=== PATIENT | male | born 1975 | race Caucasian/White ===

== ENCOUNTER → 2017-07-09 10:34 | Outpatient (CLI) | payer OTHER, SELFPAY ==
[2017-07-09 10:37] LABS: Microscopic, Urine URINE MICROSCOPIC (MICROSCOPIC)
[2017-07-09 11:08] LABS: Basophils % 0.3 % (0.1-2.0); Eosinophils # 0.2 K/mm3 (0.0-0.4); Eosinophils % 2.3 % (0.1-12.0); Hematocrit 46.4 % (42.0-52.0); Hemoglobin 15.1 g/dL (14.1-18.0); Lymphocytes # 2.8 K/mm3 (0.7-4.5); Lymphocytes % 33.4 K/mm3 (10-50); Mean Corpuscular HGB Conc 32.6 g/dL (31.8-35.4); Mean Corpuscular Hemoglobin 30.8 pg (27.0-31.2); Mean Corpuscular Volume 94.5 fl (80-94); Mean Platelet Volume 7.5 fl (7.4-10.4); Monocytes # 0.7 K/mm3 (0.1-1.0); Monocytes % 8.6 % (1.7-9.3); Neutrophils # 4.7 K/mm3 (1.8-7.8); Neutrophils % 55.4 % (37.0-80.0); Platelet Count 215 K/mm3 (142-424); Red Blood Count 4.91 M/mm3 (4.60-6.20); Red Cell Distribution Width 12.3 % (11.5-17.5); White Blood Count 8.5 K/mm3 (4.8-10.8)
[2017-07-09 11:11] LABS: Appearance,Urine CLEAR (Clear); Bilirubin,Urine Negative (Negative); Blood, Urine Negative (Negative); Color,Urine YELLOW (Yellow); Glucose,Urine (UA) Negative (Negative); Ketones,Urine Negative (Negative); Leukocyte Esterase,Urine Negative (Negative); Nitrate,Urine Negative (Negative); PH,Urine 5.5 (5.0-8.5); Protein,Urine Negative (Negative); Specific Gravity, Urine >= 1.030 (1.005-1.030); Urobilinogen,Urine 0.2 EU/dl (0.2)
[2017-07-09 11:27] LABS: Bacteria,Urine Trace /lpf; Mucus,Urine 3+ /lpf; WBC,Urine Occasional #/hpf (0-3)
[2017-07-09 12:08] LABS: Anion Gap 12.3 mEq/L (5-15); Blood Urea Nitrogen 13 mg/dL (7-18); Carbon Dioxide 28 mmol/L (21.0-32.0); Chloride 106 mmol/L (98-107); Creatinine,Serum 0.81 mg/dL (0.70-1.30); Estimated Glomerular Filt Rate 105 ml/min (>60); GFR (African American) 126 ML/MIN (>60); Glucose 97 mg/dL (74-106); Potassium 4.3 mmoL/L (3.5-5.1); Sodium 142 mmol/L (136-145)
== END ==
PROVIDERS: Visit Provider Surgery
DX: Z01.818 Encounter for other preprocedural examination (principal); K40.90 Unilateral inguinal hernia, without obstruction or gangrene, not specified as recurrent
CPT/HCPCS: 36415; 80048; 81001; 85025; 93005

== ENCOUNTER → 2021-03-28 16:36 | Outpatient (CLI) | payer BC, SELFPAY | PROVIDERS: Visit Provider Nurse Practitioner | DX: Z20.822 Contact with and (suspected) exposure to COVID-19 (principal) | CPT/HCPCS: C9803; U0003; U0005 ==

== ENCOUNTER 2021-08-06 18:14 | Inpatient (IN) | payer BC, SELFPAY ==
[2021-08-06] VITALS (11 sets, daily range): BP systolic 116–134; BP diastolic 69–85; PULSE 81–96; RESP 12–22; TEMP 36.2–37.3; O2SAT 88–99; BMI 19.2; BMI 19.1
--- NOTE | 2021-08-06 18:26 | CT_ITS ---
PROCEDURE INFORMATION: Exam: CT Abdomen And Pelvis Without Contrast Exam date and time: 08/06/2021 6:30 PM Age: 46 years old Clinical indication: Abdominal pain; Flank; Right lower quadrant (rlq); Prior surgery; Surgery date: 6+ months; Surgery type: Right inguinal hernia 2019; Additional info: RT flank/pain. HX kidney stones. TECHNIQUE: Imaging protocol: Computed tomography of the abdomen and pelvis without contrast. Radiation optimization: All CT scans at this facility use at least one of these dose optimization techniques: automated exposure control; mA and/or kV adjustment per patient size (includes targeted exams where dose is matched to clinical indication); or iterative reconstruction. COMPARISON: No relevant prior studies available. FINDINGS: Liver: Hepatic steatosis. Gallbladder and bile ducts: Normal. No calcified stones. No ductal dilation. Pancreas: Normal. No ductal dilation. Spleen: Normal. No splenomegaly. Adrenal glands: Normal. No mass. Kidneys and ureters: Bilateral perinephric stranding. Findings nonspecific and may reflect acute versus chronic inflammatory change. Bilateral punctate nonobstructing renal calculi. Stomach and bowel: Mesenteric stranding with edematous change in association with the cecum, ileocecal valve as well as extending into the ascending colon. No normal appearing appendix is demonstrated. A thickened and inflamed appendix measuring 8 mm is partially visualized along the inferolateral margin of the cecum. Appendix: See Stomach and bowel finding. Intraperitoneal space: See Stomach and bowel finding. Vasculature: Unremarkable. No abdominal aortic aneurysm. Lymph nodes: Unremarkable. No enlarged lymph nodes. Urinary bladder: Unremarkable as visualized. Reproductive: Unremarkable as visualized. Bones/joints: Unremarkable. No acute fracture. Soft tissues: Unremarkable. IMPRESSION: 1. Findings compatible with acute appendicitis. 2. Hepatic steatosis. 3. Bilateral punctate nonobstructing renal calculi. 4. Preliminary results communicated to Dr. Byrne prior to completion of the dictation at approximately 6:18 p.m.
--- NOTE | 2021-08-06 18:26 | HMH.EDABDPAI ---
ED Disposition Clinical Impression: Appendicitis Qualifiers: Appendicitis type: acute appendicitis Acute appendicitis type: with localized peritonitis Appendicitis gangrene presence: without gangrene Appendicitis perforation presence: without perforation Appendicitis abscess presence: without abscess Qualified Code(s): K35.30 - Acute appendicitis with localized peritonitis, without perforation or gangrene Disposition: Still a Patient Condition on Discharge: Good - Critical Care Critical Care Time: No Attestation: On 08/06/21, the high probability of a clinically significant, sudden or life threatening deterioration of the following system(s) required my full and direct attention, intervention and personal management. The time I documented below is in addition to time spent performing reported procedures but includes the following listed in this critical care notation. Medical Decision Making - Medical Records Medical records reviewed: Yes: I reviewed the patient's medical records. - [place] Inquiry Pt receiving controlled substance: No Vital Signs: 08/06/21 18:25 08/06/21 20:10 Temperature 98.2 F 98.2 F Temperature Source Oral Oral Pulse Rate 81 Pulse Rate [Radial] 90 Respiratory Rate 16 17 Blood Pressure 116/76 Blood Pressure [Right Arm] 134/85 Blood Pressure Mean [Right Arm] 101 Blood Pressure Position [Right Arm] Sitting 02 Sat by Pulse Oximetry 98 Oxygen Delivery Method Room Air Room Air - Lab Data Lab Results 08/06/21 18:25: Urine Color Yellow, Urine Appearance Clear, Urine pH 6.5, Ur Specific [place] 1.020, Urine Protein Negative, Urine Glucose (UA) Negative, Urine Ketones Negative, Urine Blood Negative, Urine Nitrate Negative, Urine Bilirubin Negative, Urine Urobilinogen 2.0, Ur Leukocyte Esterase Negative, Urine RBC None, Urine WBC Occasional, Ur Squamous Epith Cells 3-5, Urine Bacteria Trace 08/06/21 18:40: WBC 10.6, RBC 4.43 L, Hgb 13.7 L, Hct 41.2 L, MCV 93.0, MCH 31.0, MCHC 33.3, RDW 13.5, Plt Count 257, MPV 8.0, Neut % (Auto) 66.4, Lymph % (Auto) 20.3, [place] % (Auto) 10.3 H, Eos % (Auto) 1.9, Baso % (Auto) 1.2, Neut # (Auto) 7.0, Lymph # (Auto) 2.2, [place] # (Auto) 1.1 H, Eos # (Auto) 0.2, Baso # (Auto) 0.1 08/06/21 18:40: Sodium 137, Potassium 3.7, Chloride 104, Carbon Dioxide 27, Anion Gap 9.7, BUN 12, Creatinine 0.80, Estimated Creat Clear 99, Estimated GFR 104, Est GFR ( Amer) 126, Glucose 123 H, Calcium 9.1, Total Bilirubin 0.4, AST 35, ALT 45, Alkaline Phosphatase 64, Total Protein 7.0, Albumin 3.7, Globulin 3.3 H, Albumin/Globulin Ratio 1.1 08/06/21 18:40: Lipase 34 08/06/21 19:24: SARS-CoV-2 (PCR) Not detected, Influenza A Untype (PCR) Not detected, Influenza Type B (PCR) Not detected Result diagrams: 08/09/21 06:02 08/06/21 18:40 Orders (Tests/Meds): ED MEDICATIONS Discontinued Medications Generic Name Dose Route Start Last Admin Trade Name Freq PRN Reason Stop Dose Admin Hydrocodone Bitart/Acetaminophen 1 - 2 tab 08/06/21 22:17 Hydrocodone/Apap 5/325 Mg Tablet PO 09/05/21 22:16 Q6 PRN post-op pain Hydrocodone Bitart/Acetaminophen 1 - 2 tab 08/07/21 08:20 Hydrocodone/Apap 5/325 Mg Tablet PO 09/05/21 22:16 Q6HP PRN Moderate to Severe Pain Docusate Sodium 250 mg 08/07/21 09:37 08/09/21 07:59 Docusate Sodium 250mg Capsule PO 09/06/21 09:36 250 mg BID ALLEY Administration Hydromorphone HCl 0.5 mg 08/06/21 21:20 Hydromorphone 2mg/Ml Syringe IV 08/06/21 23:20 Q5MINP PRN Moderate to Severe Pain Hydromorphone HCl 0.5 mg 08/06/21 22:07 Hydromorphone 2mg/Ml Syringe IV 08/06/21 23:20 Q5MINP PRN Moderate to Severe Pain Piperacillin Sod/Tazobactam 50 mls @ 100 mls/hr 08/06/21 19:23 08/06/21 19:49 Sod 3.375 gm/ Sodium Chloride IV 08/06/21 19:52 100 mls/hr ONCE ONE Administration Sodium Chloride 1,000 mls @ 100 mls/hr 08/06/21 19:30 08/09/21 13:18 Sod Chlor 0.9% 1000ml Bag IV 09/05/21 19
[2021-08-06 18:29] LABS: Microscopic, Urine URINE MICROSCOPIC (MICROSCOPIC)
[2021-08-06 18:32] LABS: Appearance,Urine CLEAR (Clear); Bilirubin,Urine Negative (Negative); Blood, Urine Negative (Negative); Color,Urine YELLOW (Yellow); Glucose,Urine (UA) Negative (Negative); Ketones,Urine Negative (Negative); Leukocyte Esterase,Urine Negative (Negative); Nitrate,Urine Negative (Negative); PH,Urine 6.5 (5.0-8.5); Protein,Urine Negative (Negative)
--- NOTE | 2021-08-06 18:32 | INFXCTL.NOTE ---
patient over to CT scan at this time.
--- NOTE | 2021-08-06 18:38 | PC.NURSE ---
patient back from CT scan
[2021-08-06 18:42] LABS: Bacteria,Urine Trace /lpf; WBC,Urine Occasional #/hpf (0-3)
[2021-08-06 18:56] LABS: Basophils # 0.1 K/mm3 (0-0.2); Basophils % 1.2 % (0.1-2.0); Eosinophils # 0.2 K/mm3 (0.0-0.4); Eosinophils % 1.9 % (0.1-12.0); Hematocrit 41.2 % (42.0-52.0); Hemoglobin 13.7 g/dL (14.1-18.0); Lymphocytes # 2.2 K/mm3 (0.7-4.5); Lymphocytes % 20.3 % (10-50); Mean Corpuscular HGB Conc 33.3 g/dL (31.8-35.4); Monocytes # 1.1 K/mm3 (0.1-1.0); Monocytes % 10.3 % (1.7-9.3); Neutrophils % 66.4 % (37.0-80.0); Platelet Count 257 K/mm3 (142-424); Red Blood Count 4.43 M/mm3 (4.60-6.20); Red Cell Distribution Width 13.5 % (11.5-17.5); White Blood Count 10.6 K/mm3 (4.8-10.8)
[2021-08-06 18:57] LABS: Chloride 104 mmol/L (98-107); Potassium 3.7 mmoL/L (3.5-5.1); Sodium 137 mmol/L (136-145)
[2021-08-06 18:59] LABS: Lipase 34 U/L (23-300)
[2021-08-06 19:00] LABS: Alanine Aminotransferase 45 U/L (12-78); Albumin Level 3.7 g/dl (3.5-5.0); Albumin/Globulin Ratio 1.1 (1.1-1.8); Alkaline Phosphatase 64 U/L (38-126); Anion Gap 9.7 mEq/L (5-15); Aspartate Amino Transferase 35 U/L (17-59); Bilirubin,Total 0.4 mg/dl (0.2-1.3); Blood Urea Nitrogen 12 mg/dl (9-20); Calcium 9.1 mg/dl (8.4-10.2); Carbon Dioxide 27 mmol/L (22.0-30.0); Creatinine Clearance Estimated 99 mL/min (50-200); Estimated Glomerular Filt Rate 104 ml/min (>60); GFR (African American) 126 ML/MIN (>60); Globulin 3.3 g/dL (1.3-3.2); Glucose 123 mg/dl (74-100)
--- NOTE | 2021-08-06 19:18 | PC.NURSE ---
Dr. Byrne s/w AD
--- NOTE | 2021-08-06 19:22 | PC.NURSE ---
Dr. Byrne s/w Dr. Aguilar
--- NOTE | 2021-08-06 19:22 | PC.NURSE ---
Dr. Aguilar asked Dr. Byrne to call surgery team in. working supervisor notified
[2021-08-06 19:29] LABS: Coronavirus 19, PCR Not Detected (NotDetected); Influenza A, PCR Not Detected (NotDetected); Influenza B, PCR Not Detected (NotDetected)
--- NOTE | 2021-08-06 19:50 | PC.NURSE ---
Dr. Aguilar s/w pt at bedside, surgery consent reviewed
--- NOTE | 2021-08-06 20:08 | PC.NURSE ---
Anesthesia at bedside. Alka Pennington RN at bedside, prepared pt to take to surgery
--- NOTE | 2021-08-06 21:19 | HMH.ANESCL ---
[facility] Anesthesia Checklist - Structural Data Admitted From: Emergency Dept Planned Operative Procedure/s: appy Consent for Planned Operative Procedure(s) Verified: Yes - Additional verifications Anesthesia Reactions: No Hx Blood Transfusions: No Blood Transfusion Reaction: No - Airway Assessment C-Spine Mobility Assessed: Yes TMJ Mobility Assessed: Yes Dentition: Good Dentition - Neurological Assessment Level of Consciousness: Awake, Alert, Appropriate - Anesthesia Plan Anesthesia Risk discussed: Yes Anesthesia Plan: Verified ASA Class: II Anesthesia Type: General [facility] History I have reviewed the patient's past medical history: Yes Medical History: Denies:: Cancer, Diabetes Mellitus Type 1, Diabetes Mellitus Type 2, MRSA, Seizures *Have you ever received a pneumonia vaccine?: Yes *Have you received a flu vaccine this season?: Yes Other Medical History: Denies: Blood Transfusion Reaction Anesthesia experience/problems:: none Other Surgeries: Yes: No Previous Surgery, Hernia Repair Amputation: No Fractures: No - *Social History Smoking Status: Never smoker Alcohol Intake: never Alcohol Intake Frequency:: other Substance Use Type: denies use *Occupational Status:: employed Housing: house *Travel in the last 8 weeks: Inside the [facility] Family Hx:: Hypertension
--- NOTE | 2021-08-06 22:03 | HMH.GSHP ---
HPI HPI: This is a 46-year-old gentleman who presented to the emergency department with a 5-day history of right lower quadrant pain and intermittent nausea/vomiting. He presented to the emergency department secondary to increased symptomatology. No fevers. Evaluation included a CT scan that revealed changes consistent with appendicitis. [facility] History Medical History: Denies:: Cancer, Diabetes Mellitus Type 1, Diabetes Mellitus Type 2, MRSA, Seizures *Have you ever received a pneumonia vaccine?: Yes *Have you received a flu vaccine this season?: Yes Other Medical History: Denies: Blood Transfusion Reaction Anesthesia experience/problems:: none Other Surgeries: Yes: No Previous Surgery, Hernia Repair Amputation: No Fractures: No - *Social History Smoking Status: Never smoker Alcohol Intake: never Alcohol Intake Frequency:: other Substance Use Type: denies use *Occupational Status:: employed Housing: house *Travel in the last 8 weeks: Inside the [facility] Family Hx:: Hypertension Review of Systems - Constitutional Denies chills - Eyes Denies change in vision - ENT Denies difficulty swallowing - *Cardiovascular Denies chest pain - *Respiratory Denies cough - *Gastrointestinal Reports abdominal pain, Reports nausea, Reports vomiting - *Genitourinary Denies difficulty urinating - *Musculoskeletal Denies abnormal walking - Integumentary/Breasts Denies new lesions - *Neurologic Denies abnormal speech - Psychiatric Denies anxiety - Endocrine Denies cold intolerance - Hematologic/Lymphatic Denies easy bleeding - Allergic/Immunologic Denies GI upset with certain foods Meds Home Medications Medication Instructions Recorded Confirmed Type levocetirizine 5 mg tablet 5 mg PO DAILY 08/05/19 08/06/21 History Losartan Potassium [Cozaar 50mg 50 mg PO DAILY 08/06/21 08/06/21 History Tablets] Allergies Allergy/AdvReac Type Severity Reaction Status Date / Time hornet venom Allergy Verified 08/06/21 20:35 lisinopril AdvReac Mild Cough Verified 08/06/21 20:35 Exam Vital signs and Labs for Last 24 Hours: Temp Pulse Resp BP Pulse Ox 98.2 F 81 17 116/76 98 08/06/21 20:10 08/06/21 20:10 08/06/21 20:10 08/06/21 20:10 08/06/21 18:25 Laboratory Results - last 24 hr 08/06/21 18:25: Urine Color Yellow, Urine Appearance Clear, Urine pH 6.5, Ur Specific [place] 1.020, Urine Protein Negative, Urine Glucose (UA) Negative, Urine Ketones Negative, Urine Blood Negative, Urine Nitrate Negative, Urine Bilirubin Negative, Urine Urobilinogen 2.0, Ur Leukocyte Esterase Negative, Urine RBC None, Urine WBC Occasional, Ur Squamous Epith Cells 3-5, Urine Bacteria Trace 08/06/21 18:40: WBC 10.6, RBC 4.43 L, Hgb 13.7 L, Hct 41.2 L, MCV 93.0, MCH 31.0, MCHC 33.3, RDW 13.5, Plt Count 257, MPV 8.0, Neut % (Auto) 66.4, Lymph % (Auto) 20.3, [place] % (Auto) 10.3 H, Eos % (Auto) 1.9, Baso % (Auto) 1.2, Neut # (Auto) 7.0, Lymph # (Auto) 2.2, [place] # (Auto) 1.1 H, Eos # (Auto) 0.2, Baso # (Auto) 0.1 08/06/21 18:40: Sodium 137, Potassium 3.7, Chloride 104, Carbon Dioxide 27, Anion Gap 9.7, BUN 12, Creatinine 0.80, Estimated Creat Clear 99, Estimated GFR 104, Est GFR ( Amer) 126, Glucose 123 H, Calcium 9.1, Total Bilirubin 0.4, AST 35, ALT 45, Alkaline Phosphatase 64, Total Protein 7.0, Albumin 3.7, Globulin 3.3 H, Albumin/Globulin Ratio 1.1 08/06/21 18:40: Lipase 34 08/06/21 19:24: SARS-CoV-2 (PCR) Not detected, Influenza A Untype (PCR) Not detected, Influenza Type B (PCR) Not detected I & O for Last 24 hours: Intake & Output 08/04/21 08/05/21 08/06/21 08/07/21 11:59 11:59 11:59 11:59 Intake Total 50 / 50 Balance 50 / 50 Weight 134 lb - Constitutional no acute distress - *Routine HEENT Exam Head: Present: normocephalic Eye: Present: EOMI ENT: Present: mucous membranes moist - *Routine Neck Exam Present: full ROM - Routine Chest/Breast/Axilla Exam Chest wall:
--- NOTE | 2021-08-06 22:06 | P.OP_ITS ---
Date of procedure: 08/06/21 Pre-op Diagnosis:: Appendicitis Post-op Diagnosis:: Perforated necrotic appendicitis Procedure performed:: Laparoscopic appendectomy Surgeon:: Pardeep Aguilar MD G[employer]ANCE [employer] APPEALS COORDINATOR:: Forrest Neal Anesthesia: GETA Estimated blood loss (mL): 25 Operative findings:: Global appendiceal necrosis Perforation with focal abscess Small margin of seemingly viable tissue at appendiceal stump Control of appendiceal stump with Endoloop after staple margin appeared inadequate Operative note:: After informed consent was obtained the patient was taken to the operating room and placed in the supine position. General anesthesia was induced and his abdomen was prepped and draped in a sterile fashion. After infiltration local anesthetic an infraumbilical incision was made. A Veress needle was placed in position. The abdomen was insufflated. A 12 mm optical trocar was placed in position. Under direct visualization a 5 mm trocar was placed in the suprapubic position and an additional 5 mm trocar was placed in the left lower quadrant. Inspection revealed a phlegmonous inflammatory mass adhered to the right lower quadrant anterior abdominal wall. Careful dissection revealed immediate perforation of a necrotic appendix with adherent omentum, small bowel, and cecum. Dissection was exceptionally difficult as the appendix was not only necrotic with obvious perforation but also incorporated into the above-stated phlegmonous mass. A combination of blunt dissection and careful dissection with harmonic dior were utilized to transect the mesoappendix to the degree possible. The mid/distal appendix with obvious necrosis manually from the remainder of the appendix and was placed in a retrieval bag. This portion of the appendix was removed through the infraumbilical trocar site. The right lower quadrant was thoroughly irrigated. The remaining appendiceal stump that was equally necrotic was carefully elevated. The base did appear viable. An Endopath 45 stapling device was utilized to take the appendix at the base; however, the degree of tissue necrosis created an inadequate staple margin. The cecal margin/appendiceal stump was carefully elevated and controlled with a single Endoloop. An additional Endoloop was not placed secondary to concern for displacement of the original. The Endoloop appeared to be in good position on relatively healthy tissue. No obvious leakage noted. No obvious injury to the colon, small bowel, or ureter was noted. Visualization of structures was significantly limited secondary to gross necrosis concomitant severe inflammatory/phlegmonous changes. A #10 flat Bhavik-Saha drain was then placed along the operative bed and exited through the supra pubic trocar site. The drain was secured with interrupted nylon suture. A combination of needle close device and 0 Ethibond was utilized to close the fascia at the infraumbilical trocar site. The remaining trocar was removed as pneumoperitoneum was released. All wounds were irrigated and skin was closed with 4-0 Monocryl in a mattress fashion to facilitate hemostasis. Dressings were applied and the patient was transferred to recovery in stable condition. Condition: stable Disposition: PACU Specimens:: Appendix Complications:: No immediate
--- NOTE | 2021-08-06 22:20 | P.PN_ITS ---
[facility] Anesthesia Record Part I Intake, IV Amount: 2,500 Estimated blood loss (mL): 25 Urine output (mL): 350 Blood Pressure: 122/76 SaO2: 96 Pulse Rate: 88 Respiratory Rate: 12 Temperature: 97.2 F Patient is:: Awake, Stable Stable to PACU at:: 22:15
--- NOTE | 2021-08-06 22:45 | PC.NURSE ---
PT ARRIVED TO FLOOR VIA BED FROM OR W/STAFF @ [id number]
[2021-08-07] VITALS (13 sets, daily range): BP systolic 97–152; BP diastolic 59–96; PULSE 62–109; RESP 16–20; TEMP 36.5–37.3; O2SAT 90–97; BMI 32.9
--- NOTE | 2021-08-07 04:00 | PC.NURSE ---
pt with no issues post surgery, incisions x3 to abdomen with scant to minimal amount of bloody drainage noted around j/p site, j/p to bulb suction with serosanguineous drainage noted, pt voiding without difficulty, pt denies pain and states that he is having no pain, pt has set up on side of bed without difficulty, vss
[2021-08-07 07:30] LABS: Basophils % 0.2 % (0.1-2.0); Eosinophils % 0.1 % (0.1-12.0); Hematocrit 38.4 % (42.0-52.0); Hemoglobin 12.7 g/dL (14.1-18.0); Lymphocytes # 0.8 K/mm3 (0.7-4.5); Lymphocytes % 8.4 % (10-50); Mean Corpuscular HGB Conc 33.2 g/dL (31.8-35.4); Mean Corpuscular Hemoglobin 31.6 pg (27.0-31.2); Mean Corpuscular Volume 95.1 fl (80-94); Mean Platelet Volume 8.1 fl (7.4-10.4); Monocytes # 0.4 K/mm3 (0.1-1.0); Monocytes % 4.3 % (1.7-9.3); Neutrophils # 8.2 K/mm3 (1.8-7.8); Neutrophils % 87.1 % (37.0-80.0); Platelet Count 236 K/mm3 (142-424); Red Blood Count 4.04 M/mm3 (4.60-6.20); Red Cell Distribution Width 13.4 % (11.5-17.5); White Blood Count 9.5 K/mm3 (4.8-10.8)
[2021-08-07 07:43] LABS: MANUAL DIFFERENTIAL MANUAL DIFFERENTIAL (MANUAL DIFF)
--- NOTE | 2021-08-07 08:22 | P.CONPHA_ITS ---
[facility] Pharmacy VTE Monitoring - Patient Demographics Admission date: 08/07/21 Report Date: 08/07/21 Time: 08:22 Allergies/Adverse Reactions: Patient Allergies hornet venom Allergy (Verified 08/06/21 20:35) lisinopril Adverse Reaction (Mild, Verified 08/06/21 20:35) Cough Height: 1.78 m Weight: 104.326 kg Patient Problems: Current Active Problems Appendicitis (Acute) - VTE Risk Labs: VTE Related Lab Results Hgb 12.7 g/dL (14.1-18.0) L 08/07/21 06:27 Hct 38.4 % (42.0-52.0) L 08/07/21 06:27 Plt Count 236 K/mm3 (142-424) 08/07/21 06:27 BUN 12 mg/dl (9-20) 08/06/21 18:40 Creatinine 0.80 mg/dl (0.66-1.25) 08/06/21 18:40 Estimated Creat Clear 99 mL/min (50-200) 08/06/21 18:40 Was VTE Risk Assessment Performed: Yes VTE Score: 3 VTE Risk Level: Low Risk - Prophylaxis Types of VTE Prophylaxis: TEDS Knee High (MOHINI HOSE ORDERED) Location of Applied Device: Bilateral Lower Extremeties
[2021-08-07 09:41] LABS: Lymphocytes % 7 % (10-50); Monocytes % 1 % (2-9); Neutrophils % 92 % (42-76); Total Cells Counted 100
[2021-08-07 09:42] LABS: Platelet Estimate Normal
--- NOTE | 2021-08-07 09:49 | HMH.GSPN ---
Subjective Patient reports: feels better Progress Note: A&P (1) Acute perforated appendicitis Status: Acute Assessment and plan: Overall, doing very well status post laparoscopic appendectomy for perforated/necrotic appendicitis. The patient remains at a [id number] risk for postoperative complication such as leak secondary to intra-operative findings. He will remain on IV antibiotics and his diet will be very slowly advanced. Stool softeners started. Exam Vital signs and Labs for Last 24 Hours: Temp Pulse Resp BP Pulse Ox 98.1 F 82 16 105/59 L 94 L 08/07/21 08:00 08/07/21 08:43 08/07/21 08:00 08/07/21 08:43 08/07/21 08:00 Laboratory Results - last 24 hr 08/06/21 18:25: Urine Color Yellow, Urine Appearance Clear, Urine pH 6.5, Ur Specific [place] 1.020, Urine Protein Negative, Urine Glucose (UA) Negative, Urine Ketones Negative, Urine Blood Negative, Urine Nitrate Negative, Urine Bilirubin Negative, Urine Urobilinogen 2.0, Ur Leukocyte Esterase Negative, Urine RBC None, Urine WBC Occasional, Ur Squamous Epith Cells 3-5, Urine Bacteria Trace 08/06/21 18:40: WBC 10.6, RBC 4.43 L, Hgb 13.7 L, Hct 41.2 L, MCV 93.0, MCH 31.0, MCHC 33.3, RDW 13.5, Plt Count 257, MPV 8.0, Neut % (Auto) 66.4, Lymph % (Auto) 20.3, [place] % (Auto) 10.3 H, Eos % (Auto) 1.9, Baso % (Auto) 1.2, Neut # (Auto) 7.0, Lymph # (Auto) 2.2, [place] # (Auto) 1.1 H, Eos # (Auto) 0.2, Baso # (Auto) 0.1 08/06/21 18:40: Sodium 137, Potassium 3.7, Chloride 104, Carbon Dioxide 27, Anion Gap 9.7, BUN 12, Creatinine 0.80, Estimated Creat Clear 99, Estimated GFR 104, Est GFR ( Amer) 126, Glucose 123 H, Calcium 9.1, Total Bilirubin 0.4, AST 35, ALT 45, Alkaline Phosphatase 64, Total Protein 7.0, Albumin 3.7, Globulin 3.3 H, Albumin/Globulin Ratio 1.1 08/06/21 18:40: Lipase 34 08/06/21 19:24: SARS-CoV-2 (PCR) Not detected, Influenza A Untype (PCR) Not detected, Influenza Type B (PCR) Not detected 08/07/21 06:27: WBC 9.5, RBC 4.04 L, Hgb 12.7 L, Hct 38.4 L, MCV 95.1 H, MCH 31.6 H, MCHC 33.2, RDW 13.4, Plt Count 236, MPV 8.1, Neut % (Auto) 87.1 H, Lymph % (Auto) 8.4 L, [place] % (Auto) 4.3, Eos % (Auto) 0.1, Baso % (Auto) 0.2, Neut # (Auto) 8.2 H, Lymph # (Auto) 0.8, [place] # (Auto) 0.4, Eos # (Auto) 0.0, Baso # (Auto) 0.0 I & O for Last 24 hours: Intake & Output 08/04/21 08/05/21 08/06/21 08/07/21 11:59 11:59 11:59 11:59 Intake Total 3194 / 3194 Output Total 1590 / 1590 Balance 1604 / 1604 Weight 230 lb - Constitutional no acute distress - *Routine Respiratory Exam Absent: respiratory distress - *Routine Cardiovascular Exam Absent: tachycardia - *Routine Abdominal Exam Present: soft Comments: Postoperative tenderness noted. Dressings intact with no spreading cellulitis. Bhavik-Saha drain in good position. Serosanguineous drainage noted.
[2021-08-07 09:52] LABS: RBC Morphology Normal
--- NOTE | 2021-08-07 18:20 | PC.NURSE ---
35ml of bloody drainage emptied from kay
--- NOTE | 2021-08-07 18:41 | PC.NURSE ---
pt has tolerated ambulation through out the unit well. has not complained of any pain today. no reports of nausea. incision sites are intact.
[2021-08-08 04:00] VITALS: BP 125/70; PULSE 70; RESP 16; TEMP 36.8; O2SAT 95
--- NOTE | 2021-08-08 04:24 | PC.NURSE ---
Addendum entered by Estefania Estrada RN 08/08/21 06:49: Tolerating full liquid diet without issue. Original Note: No acute episodes or changes thus far during my shift. IVF and ATBX infusing per order. Pt has been up ambulating and sitting up to chair. No complaints of pain or n/v this shift. Pt has 3 lap incisions (fredi site - moderate amt of bloody drainage noted, site towards pts left side - scant amt of drainage noted, no drainage seen on other site) Bloody drainage noted in FREDI drain. Pt is voiding w/o difficulty with good urine output. Pt is has not had a BM yet. Incentive spirometer at bedside - achieving 2000 ml during use. Pt states he is ready to go home and get back to work. No other needs or complaints voiced at this time. Call light in reach.
[2021-08-08 05:00] VITALS: BMI 36.8
--- NOTE | 2021-08-08 05:51 | PC.NURSE ---
30 mls of serosanguineous fluid emptied from FREDI drain.
[2021-08-08 06:48] LABS: Basophils # 0.1 K/mm3 (0-0.2); Basophils % 0.5 % (0.1-2.0); Eosinophils # 0.1 K/mm3 (0.0-0.4); Eosinophils % 0.7 % (0.1-12.0); Hematocrit 37.1 % (42.0-52.0); Hemoglobin 12.2 g/dL (14.1-18.0); Lymphocytes % 22.4 % (10-50); Mean Corpuscular HGB Conc 32.8 g/dL (31.8-35.4); Mean Corpuscular Hemoglobin 31.4 pg (27.0-31.2); Mean Corpuscular Volume 95.5 fl (80-94); Mean Platelet Volume 8.5 fl (7.4-10.4); Monocytes # 0.6 K/mm3 (0.1-1.0); Monocytes % 6.6 % (1.7-9.3); Neutrophils # 6.4 K/mm3 (1.8-7.8); Neutrophils % 69.8 % (37.0-80.0); Platelet Count 256 K/mm3 (142-424); Red Blood Count 3.88 M/mm3 (4.60-6.20); Red Cell Distribution Width 13.5 % (11.5-17.5); White Blood Count 9.1 K/mm3 (4.8-10.8)
[2021-08-08 08:00] VITALS: BP 134/71; PULSE 81; RESP 17; TEMP 36.4; O2SAT 95
--- NOTE | 2021-08-08 08:34 | HMH.GSPN ---
Subjective Patient reports: no new complaints, feels better Progress Note: A&P (1) Acute perforated appendicitis Status: Acute Assessment and plan: Overall, doing very well status post laparoscopic appendectomy. Continue IV antibiotics for now Continue to increase ambulation Continue to slowly advance diet Exam Vital signs and Labs for Last 24 Hours: Temp Pulse Resp BP Pulse Ox 97.5 F L 81 17 134/71 95 08/08/21 08:00 08/08/21 08:00 08/08/21 08:00 08/08/21 08:00 08/08/21 08:00 Laboratory Results - last 24 hr 08/07/21 06:27: Total Counted 100, Neutrophils % (Manual) 92 H, Lymphocytes % (Manual) 7 L, Monocytes % (Manual) 1 L, Platelet Estimate Normal, RBC Morphology Normal 08/08/21 06:25: WBC 9.1, RBC 3.88 L, Hgb 12.2 L, Hct 37.1 L, MCV 95.5 H, MCH 31.4 H, MCHC 32.8, RDW 13.5, Plt Count 256, MPV 8.5, Neut % (Auto) 69.8, Lymph % (Auto) 22.4, [place] % (Auto) 6.6, Eos % (Auto) 0.7, Baso % (Auto) 0.5, Neut # (Auto) 6.4, Lymph # (Auto) 2.0, [place] # (Auto) 0.6, Eos # (Auto) 0.1, Baso # (Auto) 0.1 I & O for Last 24 hours: Intake & Output 08/05/21 08/06/21 08/07/21 08/08/21 11:59 11:59 11:59 11:59 Intake Total 3554 / 3554 1350 / 1350 Output Total 1590 / 1590 2665 / 2665 Balance 1964 / 1964 -1315 / -1315 Weight 230 lb 257 lb 3.2 oz Microbiology Reports for the Last 24 Hours: Microbiology 08/06/21 18:25 Urine,Catheterized Urine Culture - Preliminary - Constitutional no acute distress - *Routine Respiratory Exam Absent: respiratory distress - *Routine Cardiovascular Exam Present: RRR - *Routine Abdominal Exam Present: soft Comments: Incisions healing without sign of infection. Bhavik-Saha drain in place. Minimal drainage.
--- NOTE | 2021-08-08 12:51 | P.PN_ITS ---
[facility] Anesthesia Record Part II Discharge Time: 22:45 Destination: floor PACU nurse assessment reviewed?: Yes Patient Condition:: Good Anesthesia Complications:: None Swallowing reflex intact?: Yes Cyanosis?: No Blood Pressure: 131/82 Pulse Rate: 84 Temperature: 99.2 F Mental Status: Alert & Oriented Pain level:: 3 Nausea and/or vomitting:: None Intake, IV Amount: 2,500
[2021-08-08 12:52] VITALS: BP 131/82; PULSE 84; TEMP 37.3
[2021-08-08 13:48] VITALS: BMI 36.8
[2021-08-08 16:00] VITALS: BP 110/76; PULSE 66; RESP 22; TEMP 36.3; O2SAT 96
--- NOTE | 2021-08-08 18:29 | PC.NURSE ---
Pt has been resting to himself. Ambulating in room often. Pt has no complaints of pain this shift. VSS.
[2021-08-08 20:00] VITALS: BP 130/78; PULSE 83; RESP 16; TEMP 36.9; O2SAT 98
[2021-08-09 03:25] VITALS: BP 110/65; PULSE 82; RESP 18; TEMP 36.4; O2SAT 94
[2021-08-09 05:00] VITALS: BMI 35.1
--- NOTE | 2021-08-09 07:11 | HMH.GSPN ---
Subjective Patient reports: no new complaints, feels better Progress Note: A&P (1) Acute perforated appendicitis Status: Acute Assessment and plan: Overall, doing well status post laparoscopic appendectomy. Follow-up pending labs Continue IV antibiotics for now Possible discharge home with close outpatient follow-up later today Possible removal of [place] drain prior to discharge Exam Vital signs and Labs for Last 24 Hours: Temp Pulse Resp BP Pulse Ox 97.5 F L 82 18 110/65 94 L 08/09/21 03:25 08/09/21 03:25 08/09/21 03:25 08/09/21 03:25 08/09/21 03:25 I & O for Last 24 hours: Intake & Output 08/06/21 08/07/21 08/08/21 08/09/21 11:59 11:59 11:59 11:59 Intake Total 3554 / 3554 1850 / 1850 5458 / 5458 Output Total 1590 / 1590 2665 / 2665 15 / 15 Balance 1963 / 1963 -815 / -815 5443 / 5443 Weight 230 lb 257 lb 3.2 oz 245 lb 2 oz Microbiology Reports for the Last 24 Hours: Microbiology 08/06/21 18:25 Urine,Catheterized Urine Culture - Preliminary - Constitutional no acute distress - *Routine Respiratory Exam Absent: respiratory distress - *Routine Cardiovascular Exam Present: RRR - *Routine Abdominal Exam Present: soft Comments: Incisions healing without sign of infection. Bhavik-Saha drain with small amount of serosanguineous drainage.
[2021-08-09 07:28] LABS: Basophils # 0.1 K/mm3 (0-0.2); Eosinophils # 0.2 K/mm3 (0.0-0.4); Hematocrit 39.3 % (42.0-52.0); Hemoglobin 13.2 g/dL (14.1-18.0); Mean Corpuscular HGB Conc 33.5 g/dL (31.8-35.4); Mean Corpuscular Hemoglobin 31.4 pg (27.0-31.2); Mean Corpuscular Volume 93.6 fl (80-94); Mean Platelet Volume 7.7 fl (7.4-10.4); Monocytes # 0.8 K/mm3 (0.1-1.0); Monocytes % 7.4 % (1.7-9.3); Neutrophils # 7.1 K/mm3 (1.8-7.8); Neutrophils % 69.6 % (37.0-80.0); Platelet Count 292 K/mm3 (142-424); Red Cell Distribution Width 13.3 % (11.5-17.5); White Blood Count 10.2 K/mm3 (4.8-10.8)
[2021-08-09 08:00] VITALS: BP 127/65; PULSE 87; RESP 18; TEMP 36.9; O2SAT 95
--- NOTE | 2021-08-09 09:01 | HMH.ACPN2 ---
Internal Medicine - PN: Subj *Date: 08/09/21 *Time: 09:01 Exam Vital signs and Labs for Last 24 Hours: Temp Pulse Resp BP Pulse Ox 98.5 F 87 18 127/65 95 08/09/21 08:00 08/09/21 08:00 08/09/21 08:00 08/09/21 08:00 08/09/21 08:00 Laboratory Results - last 24 hr 08/09/21 06:02: WBC 10.2, RBC 4.20 L, Hgb 13.2 L, Hct 39.3 L, MCV 93.6, MCH 31.4 H, MCHC 33.5, RDW 13.3, Plt Count 292, MPV 7.7, Neut % (Auto) 69.6, Lymph % (Auto) 20.0, [place] % (Auto) 7.4, Eos % (Auto) 2.0, Baso % (Auto) 1.0, Neut # (Auto) 7.1, Lymph # (Auto) 2.0, [place] # (Auto) 0.8, Eos # (Auto) 0.2, Baso # (Auto) 0.1 I & O for Last 24 hours: Intake & Output 08/06/21 08/07/21 08/08/21 08/09/21 23:59 23:59 23:59 23:59 Intake Total 2550 / 2550 1604 / 1604 4470 / 4470 2478 / 2478 Output Total 2825 / 3825 1445 / 1445 0 / 0 Balance 2550 / 2550 -1221 / -2221 3025 / 3025 2478 / 2478 Weight 60.78 kg 104.326 kg 116.6 kg 111.187 kg Microbiology Reports for the Last 24 Hours: Microbiology 08/06/21 18:25 Urine,Catheterized Urine Culture - Preliminary Assessment and Plan (1) Acute perforated appendicitis Status: Acute Category: Medical Code(s): K35.32 - Acute appendicitis with perforation and localized peritonitis, without abscess The patient's infection will respond to the chosen ABx?: Yes (ZOSYN FOLLOWING APPENDECTOMY) Is the patient receiving the right drug, dose, and route?: Yes Could a more targeted ABx be ordered?: No 5 (DAYS)
--- NOTE | 2021-08-09 12:34 | PC.NURSE ---
Upon am assessment pt did decline visual exam of abd and stated he was kind of shy and preferred this RN and Reggie Otero RN not to assess abd through visual exam. Dr. Aguilar is at bedtime at this time and is removing FREDI drain.
--- NOTE | 2021-08-09 12:51 | HMH.DCSUM ---
General - General Admission date:: 08/06/21 Discharge date: 08/09/21 HPI HPI: HPI: This is a 46-year-old gentleman who presented to the emergency department with a 5-day history of right lower quadrant pain and intermittent nausea/vomiting. He presented to the emergency department secondary to increased symptomatology. No fevers. Evaluation included a CT scan that revealed changes consistent with appendicitis. Hospital Course Hospital Course: The patient underwent laparoscopic appendectomy. Please see operative report for detail. Perforated appendicitis with necrosis and abscess confirmed intraoperatively. He convalesced well and was maintained on Zosyn throughout his stay. He remained afebrile with stable normal vital signs and was deemed appropriate for discharge on the morning of postoperative day 3. His white blood cell count remained normal. Objective Vital signs: Temp Pulse Resp BP Pulse Ox 98.5 F 87 18 127/65 95 08/09/21 08:00 08/09/21 08:00 08/09/21 08:00 08/09/21 08:00 08/09/21 08:00 no acute distress - *Routine HEENT Exam Head: Present: normocephalic Eye: Present: EOMI ENT: Present: mucous membranes moist - *Routine Neck Exam Present: full ROM - Routine Chest/Breast/Axilla Exam Chest wall: Absent: tenderness - *Routine Respiratory Exam Absent: respiratory distress - *Routine Cardiovascular Exam Present: RRR - *Routine Abdominal Exam Present: soft - *Routine Rectal Exam Patient deferred: visual exam - *Routine Exam Patient deferred: penile exam - *Routine Extremities Exam Present: full ROM - Routine Back/Spine/Pelvis Exam Back/Spine: Present: full ROM - *Routine Skin Exam Absent: erythema - *Routine Neurological Exam Present: alert, oriented X3 - Routine Psychiatric Exam Present: normal affect Results Labs on day of discharge: Labs from last 24 hours 08/09/21 06:02 WBC 10.2 RBC 4.20 L Hgb 13.2 L Hct 39.3 L MCV 93.6 MCH 31.4 H MCHC 33.5 RDW 13.3 Plt Count 292 MPV 7.7 Neut % (Auto) 69.6 Lymph % (Auto) 20.0 [place] % (Auto) 7.4 Eos % (Auto) 2.0 Baso % (Auto) 1.0 Neut # (Auto) 7.1 Lymph # (Auto) 2.0 [place] # (Auto) 0.8 Eos # (Auto) 0.2 Baso # (Auto) 0.1 Preliminary micro results at discharge 08/06/21 18:25 Urine Culture - Preliminary Urine,Catheterized DS: Diagnosis - Discharge Diagnosis (1) Acute perforated appendicitis Status: Acute Discharge Plan - Patient Discharge Instructions ACTIVITY: No heavy lifting DIET: other (soft diet) Patient Instructions: DI for Appendicitis -- Adult, Appendicitis, DI for Surgical Site Infection, Appendectomy -- Laparoscopic Surgery - Follow up Plan Follow up with: Frankie Trujillo MD [Primary Care Provider] - Pardeep Aguilar MD [Staff Physician] - 1 week Disposition: Home, Self-Care Condition at discharge:: Improved Home Medications: Home Medications Medication Instructions Recorded Confirmed Type levocetirizine 5 mg tablet 5 mg PO DAILY 08/05/19 08/06/21 History Losartan Potassium [Cozaar 50mg 50 mg PO DAILY 08/06/21 08/06/21 History Tablets] Amoxicillin/Potassium Clav 500 mg PO TID #30 tab 08/09/21 Rx [Augmentin 500mg tab] Docusate Sodium [Colace 250mg 250 mg PO BID #20 cap 08/09/21 Rx capsule] Hydrocod/Acet 5/325 mg [[place] 1 tab PO Q6HP PRN #3 tab 08/09/21 Rx 5/325mg tablet] Prescriptions/Medication Reconciliation: New Amoxicillin/Potassium Clav [Augmentin 500mg tab] 500 mg PO TID #30 tab Hydrocod/Acet 5/325 mg [[place] 5/325mg tablet] 1 tab PO Q6HP PRN #3 tab PRN Reason: pain after drain removal Docusate Sodium [Colace 250mg capsule] 250 mg PO BID #20 cap Continued levocetirizine 5 mg tablet 5 mg PO DAILY Losartan Potassium [Cozaar 50mg Tablets] 50 mg PO DAILY - Problem Reconciliation Problems Reviewed?: Yes
--- NOTE | 2021-08-10 11:37 | CARE MANAGER ---
Contacted patient related to follow up from hospital discharge. Patient states that he still has some soreness in his incisions, but no drainage. He was able to obtain his medications and is aware of his follow up appointments with Dr. Aguilar and Dr. Trujillo. He denies any questions or concerns.
== END 2021-08-09 13:23 | disposition home or self-care (01) | DRG 340 ==
LOC: UTC 18:16 → ER 18:18 → SDC 20:19 → 2ND 20:30
PROVIDERS: Emergency Medicine; Admitting Provider Surgery; Emergency Provider Nurse Practitioner Family; PCP Family Medicine; Visit Provider Surgery
PROC: 0DTJ4ZZ Resection of Appendix, Percutaneous Endoscopic Approach (ICD-10-PCS; CPT 44970; principal; 2021-08-06 20:30)
DX: K35.33 Acute appendicitis with perforation, localized peritonitis, and gangrene, with abscess (principal); Z20.822 Contact with and (suspected) exposure to COVID-19
CPT/HCPCS: 44970; 36415; 74176; 80053; 81001; 83690; 85007; 85025; 87086; 87088; 87186; 99285; C9803; J0330; J2405; J2543; J2710; U0003; U0005